=== PATIENT | male | born 1985 | race Caucasian/White ===

== ENCOUNTER 2016-11-05 02:12 | Emergency (ER) | payer OTHER ==
[2016-11-05 02:20] VITALS: BP 148/94; PULSE 97; RESP 16; O2SAT 98
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
[2016-11-05 05:38] VITALS: BP 120/78; PULSE 89; RESP 18; O2SAT 97
== END 2016-11-05 05:17 | disposition home or self-care (01) ==
LOC: SED 02:55
DX: T23.201A Burn of second degree of right hand, unspecified site, initial encounter (principal); T31.0 Burns involving less than 10% of body surface; X18.XXXA Contact with other hot metals, initial encounter; Y92.9 Unspecified place or not applicable; Y93.89 Activity, other specified; Y99.8 Other external cause status; F17.200 Nicotine dependence, unspecified, uncomplicated